=== PATIENT | female | born 1990 | race Caucasian/White ===

== ENCOUNTER 2016-09-29 08:12 | Emergency (ER) | payer OTHER ==
[~2016-09-29] VITALS: Ht 172.7 cm; Wt 58.1 kg
[2016-09-29 08:24] VITALS: BP 112/78
[2016-09-29] MEDS ORDERED: CLONAZEPAM0.5 MG PO (10:13)
[2016-09-29] MEDS ORDERED: SERTRALINE HCL50 MG PO (10:14)
[2016-09-29] MEDS ORDERED: SRONYX1 EACH PO (10:15)
[2016-09-29] MEDS ORDERED: SPIRONOLACTONE50 MG PO (10:16)
== END 2016-09-29 10:54 | disposition home or self-care (01) ==
LOC: EME → EDBD 08:12 → EME 08:12
DX: S43.402A Unspecified sprain of left shoulder joint, initial encounter (principal); S00.83XA Contusion of other part of head, initial encounter; V47.0XXA Car driver injured in collision with fixed or stationary object in nontraffic accident, initial encounter
CPT/HCPCS: 70486; 73030; 99281; 99284